=== PATIENT | female | born 1985 | race Caucasian/White ===

== ENCOUNTER 2023-10-18 07:48 | Emergency (ER) | payer OTHER, SELFPAY ==
[2023-10-18 07:51] VITALS: BP 111/63
[2023-10-18 08:32] VITALS: BMI 28.0
--- NOTE | 2023-10-18 08:37 | ED.GENMED ---
History of Present Illness
General
Chief Complaint: Chest Pain
Source: patient
Exam Limitations: none
Time Seen by Provider: 10/18/23 08:18
Nursing documentation reviewed up to this point in time: agreed with
Travel History
Have you had any contact with someone who has COVID-19?: No
Do you have any symptoms of coronavirus? Fever > 100 degrees, chills, cough, shortness of breath, sore throat, loss of taste or smell, muscle aches, or headache?: No
History of Present Illness
History of Present Illness:
37-year-old female presenting to the emergency department today with concerns of chest pain shortness of breath a few days after initially mild upper respiratory symptoms. Upper respiratory symptoms additionally throughout the remainder of the
household started with cough nasal congestion sore throat cough has been worsening over the past few days with associated shortness of breath and chest pain mainly with coughing to the central chest. Described as achy and sharp denies any heavy
pressure discomfort. Denies nausea vomiting denies fevers over the past 24 hours.
Past History
Past History
ED Past Medical History: None
ED Past Surgical History: None
Social History
Living: with family
Review of Systems
Review of Systems
Allergies reviewed?: Yes
All Other Systems: ROS reviewed and negative except as documented in HPI and ROS
Phy Exam
Physical Exam
Physical Exam:
GENERAL: Alert , in no apparent distress
EYE: pupils equal and reactive
NECK: Supple, no significant adenopathy.
ENT: o/p clr, mmm.
CARDIAC: Regular rate and rhythm .
LUNGS: Diffuse inspiratory and expiratory wheezing.
ABDOMEN: Soft, without focal tenderness, no r/g, no cvat
NEUROLOGICAL: Alert and oriented, no focal neuro deficits
SKIN: Warm and dry, skin intact.
MUSCULOSKELETAL: No edema, well perfused.
PSYCH: Normal and appropriate interaction.
Scores
Heart Score for Chest Pain Patients
STEMI patient?: No
History: Slightly or Non-Suspicious
ECG: Normal
Age: </= 45 years
Risk Factors: No Risk Factors
Troponin: </= Normal Limit
Heart Score for Chest Pain Patients: 0
Heart Score Risk: 2.5% MACE over next 6 weeks
Course
Orders/Labs/Results
Orders:
Orders
10/18/23 07:49
Electrocardiogram (*1) Urgent
Reason for Study: Chest Pain
EKG- Treatment ONCE
10/18/23 08:33
Dexamethasone Sod Phosphate [Decadron] 10 mg IV NOW STA
Ipratropium/Albuterol Sulfate [Duoneb] 3 ml INH R NOW STA
CR Chest - 2 Views Urgent
Comment:
Reason For Exam: cp
10/18/23 08:34
Ketorolac [Toradol] 30 mg IV NOW STA
10/18/23 08:38
Complete Blood Count/With Diff Urgent
Comprehensive Metabolic Panel Urgent
D-Dimer Urgent
HCG, Serum Qualitative Screen Urgent
Comment: ADD ON
10/18/23 08:46
Add On- LAB Urgent
Tests Added?: hcg qual
10/18/23 10:32
Ipratropium/Albuterol Sulfate [Duoneb] 3 ml INH R NOW ONE
Abnormal Lab Results
10/18/23
08:38
Lymphocytes % 18.4 L %
(20.5-51.1)
D-Dimer 0.56 H ug/mlFEU
(0.00-0.50)
Chloride 108 H mmol/L
(98-107)
10/18/23 08:38
10/18/23 08:38
Vital Signs
Initial and Last Documented VS:
Initial Vital Signs
Temp Pulse Resp BP Pulse Ox
97.7 F 79 18 111/63 97
10/18/23 07:51 10/18/23 07:51 10/18/23 07:51 10/18/23 07:51 10/18/23 07:51
Last Documented Vital Signs
Temp Pulse Resp BP Pulse Ox
97.7 F 74 16 109/60 97
10/18/23 07:51 10/18/23 09:09 10/18/23 09:09 10/18/23 09:09 10/18/23 09:09
MDM/Problems Addressed
MDM/Problems Addressed:
37-year-old female presenting to the emergency department today with concerns of chest discomfort associated with recent upper respiratory syndrome persisting coughing discomfort to the central chest. Upon arrival here vital signs are normal
patient in no obvious distress does have a bronchospastic sounding cough and does have diffuse wheezing on examination. Patient does claim that she has had some intermittent leg swelling but she does have this somewhat chronically from
varicosities. Additionally she had a D&C 3 weeks ago at 19 weeks . Symptoms are most consistent with reactive airway syndrome however with recent surgery and patient's concern of leg swelling plan to get a dimer to rule out potential PE
though she is Wells score low risk. D-dimer returned slightly elevated at 0.56. Remainder of labs unremarkable chest x-ray normal in appearance patient claims his symptoms improved after receiving a steroid as well as DuoNeb lungs with very
minimal expiratory wheeze at this point it was explained to her that at this would like a CT look further for blood clot. The patient claims that she would not like to get a CT scan at this time the risk of missing a PE was explained to the patient
as well as the potential likelihood that this was occurring. She opted to go home and be treated as a likely reactive airway to what appears to be very consistent with a viral syndrome over the past week or so. She was given very strict return
precautions but otherwise demonstrated clear banding of risk and benefit here.
*Critical Care Note
Total Time (30-74mins, 75-104mins- exclusive of procedures): Not Applicable
ED Attending Note
-
Portions of this chart may have been created with voice recognition software.� Occasional wrong word or��sound alike� substitutions may have occurred due to the inherent limitations of voice recognition software.
Discharge Plan
Departure
Patient Disposition: Home (Routine Discharge)
Date of Disposition: 10/18/23
Time of Disposition: 10:33
Patient with high blood pressure during this ER visit?: No
Condition: Good
Covid-19: Not Applicable
Discharge Problem:
Acute viral syndrome, Reactive airway disease
Instructions: Asthma, Adult (DC)
Prescriptions:
New
albuterol sulfate 90 mcg/actuation aerosol powdr breath activated
2 inh inhalation Q6H PRN (Reason: shortness of breath) Qty: 1 0RF
prednisone 50 mg tablet
50 mg PO DAILY 4 Days Qty: 4 0RF
No Action
prenat.vits,clayton,[id number] [ Vitamin] 1 TAB tablet
1 tab PO DAILY
ibuprofen 600 MG tablet
600 mg PO Q4HPRN PRN (Reason: moderate pain/cramps) Qty: 0 0RF
hydrocodone-acetaminophen 1 TABLET tablet
1 tab PO Q4HPRN PRN (Reason: severe pain) Qty: 10 0RF
Referrals:
Nan Watson MD [Family Provider] -
Activity Restrictions/Additional Instructions:
You came to the emergency department today with concerns of cough shortness of breath. Here had a reassuring evaluation with normal labs other than a mildly elevated D-dimer level. It was recommended to get a CT scan of your chest to evaluate to
fully rule out a PE that we did not end up completing today is very important to return immediately for any worsening symptoms. Otherwise your symptoms are appear to be consistent with a reactive airway to likely virus. Return to the emergency
department immediately for any worsening, new or concerning symptoms.
Interventions
Interventions:
*Risk Screen - Suicide Last Done: 10/18/23 08:33
*General Assessment Last Done: 10/18/23 08:33
*Neglect/Abuse Screening Last Done: 10/18/23 08:33
*ED COVID-19 Vaccine History Last Done: 10/18/23 08:33
ED- Cardiac Assessment Last Done: 10/18/23 08:58
[2023-10-18] MEDS: DECADRON 10 MG IV (08:48)
[2023-10-18] MEDS: DUONEB 3 ML INH ×2 (08:48→10:36)
[2023-10-18] MEDS: TORADOL 30 MG IV (08:48)
[2023-10-18 08:54] LABS: % Basophils 0.2 % (0-2); % Eosinophils 1.1 % (0-6); % Immature Granulocytes 0.5 % (0-0.5); % Lymphocytes 18.4 % (20.5-51.1); % Monocytes 6.5 % (1.7-9.3); % Neutrophils 73.3 % (42.2-75.2); Absolute Eosinophils 0.1 10^3/uL (0-0.7); Absolute Lymphocytes 1.2 10^3/uL (1.2-3.4); Absolute Monocytes 0.4 10^3/uL (0.1-0.6); Absolute Neutrophils 4.7 10^3/uL (1.4-6.5); Hemoglobin 13.9 g/dL (12.0-16.0); Mean Corp Hgb Conc. 33.9 g/dL (33.0-37.0); Mean Corpuscular Hgb 28.4 pg (27.0-31.0); Mean Corpuscular Volume 83.8 fL (81.0-99.0); Mean Platelet Volume 9.6 fL (7.4-10.4); Nucleated Red Blood Cells % 0 %; Platelet Count 189 10^3/uL (130-400); Red Blood Cell Count 4.89 10^6/uL (4.20-5.40); White Blood Cell Count 6.5 10^3/uL (4.8-10.8)
[2023-10-18 09:03] LABS: ALT (SGPT) 22 U/L (0-35); AST (SGOT) 36 U/L (14-36); Albumin 3.8 g/dl (3.5-5.0); Alkaline Phosphatase 62 U/L (38-126); Blood Urea Nitrogen 9 mg/dl (7-17); Calcium 8.5 mg/dl (8.4-10.2); Carbon Dioxide 24 mmol/L (22-30); Chloride 108 mmol/L (98-107); Estimated Creatinine Clearance > 125 ml/min; Glucose 88 mg/dl (70-99); Potassium 3.8 mmol/L (3.5-5.1); Sodium 136 mmol/L (135-145); Total Bilirubin 0.6 mg/dl (0.2-1.3); Total Protein 6.6 g/dl (6.3-8.2); eGFR > 60.00
[2023-10-18 09:07] LABS: D-Dimer 0.56 ug/mlFEU (0.00-0.50)
[2023-10-18 09:09] VITALS: BP 109/60
[2023-10-18 09:39] LABS: HCG, Serum Qualitative Screen Negative
[2023-10-18 10:45] VITALS: BP 111/67
== END 2023-10-18 10:49 | disposition home or self-care (01) ==
LOC: EMR 07:48
PROVIDERS: Physician Assistant; EMERGENCY PHYSICIAN Emergency Medicine; FAMILY PHYSICIAN Family Medicine
DX: B34.9 Viral infection, unspecified (principal); J45.909 Unspecified asthma, uncomplicated
CPT/HCPCS: 99285; 96374; 96375; 94640; 71046; 80053; 84703; 85025; 85379; 93005